=== PATIENT | female | born 1985 | race Caucasian/White ===

== ENCOUNTER 2023-12-01 11:52 | Day surgery (SDC) | payer OTHER ==
[2023-11-29 15:29] VITALS: BMI 45.6
[~2023-12-01 11:52] MED LIST: LIDOCAINE 1% (10MG/ML) FOR IV START INTRADERMA PRN
[2023-12-01 12:33] VITALS: TEMP 97.8
[2023-12-01] MEDS: LACTATED RINGERS 1,000 ML IV SCH (12:45)
[2023-12-01] MEDS ORDERED: PROPOFOL 10 MG/ML 20 ML VIAL IV ONE (12:52)
[2023-12-01] MEDS: LACTATED RINGERS 1,000 ML IV ONE ×2 (12:54→13:03)
--- NOTE | 2023-12-01 13:02 | P.PCN ---
Date of Procedure: 12/01/23 Procedure(s) Performed: BRIEF HISTORY: Patient is a 38-year-old, pleasant, white female scheduled of endoscopies about evaluation of chronic epigastric pain associate with intermittent nausea vomiting for the last 5 months duration. She was treated with Prilosec 20 mg daily for 1 month with no help. Takes Zofran as needed. PROCEDURE PERFORMED: Esophagogastroduodenoscopy with biopsy. PREOPERATIVE DIAGNOSIS: Chronic epigastric pain/intermittent nausea vomiting of 5 months duration. IV sedation per anesthesia. PROCEDURE: After informed consent was obtained, the patient was brought into the endoscopy unit. IV sedation was administered by Anesthesia under continuous monitoring. Initially the Olympus GIF-140 video endoscope was inserted into the mouth. Esophagus intubated without any difficulty. It was gradually advanced into the stomach and duodenum and carefully examined. The bulb and the second part of the duodenum appeared normal. Biopsies were done from the duodenum to evaluate for celiac disease. The scope at this time was withdrawn to the stomach, adequately insufflated with air, and upon careful examination, mucosa of the antrum, linear areas of erythema consistent with gastritis and biopsies were done from this area. Mucosa of the body, cardia and the fundus appeared normal. The scope was then withdrawn into the esophagus. The GE junction was located at 39 cm from the incisors. The esophagus appeared normal. There were no erosions or ulcerations seen, biopsies were done from the distal esophagus and the patient tolerated the procedure well. IMPRESSION: 1. Mild antral gastritis. 2. No evidence of esophagitis or peptic ulcer disease. RECOMMENDATIONS: The findings of this examination were discussed with the patient as well as her family. She was advised to follow-up with the biopsy results. Follow-up in the office in 3 to 4 weeks..
[2023-12-01 13:28] VITALS: BP 121/83; PULSE 69; RESP 18
== END 2023-12-01 13:30 | disposition home or self-care (01) ==
LOC: ORWHC2ENDO 11:52
PROVIDERS: ATTEND Internal Medicine Gastroenterology
DX: K29.50 Unspecified chronic gastritis without bleeding (principal); G89.29 Other chronic pain; E78.5 Hyperlipidemia, unspecified; J45.909 Unspecified asthma, uncomplicated; K76.0 Fatty (change of) liver, not elsewhere classified; F17.290 Nicotine dependence, other tobacco product, uncomplicated; Z79.899 Other long term (current) drug therapy; Z91.040 Latex allergy status; Z88.8 Allergy status to other drugs, medicaments and biological substances
CPT/HCPCS: 43239; 81025; 88305

== ENCOUNTER → 2024-02-22 | Outpatient (CLI) | payer OTHER ==
[2024-02-22 15:01] VITALS: BP 140/84; PULSE 90; RESP 16; TEMP 99.1
--- NOTE | 2024-02-22 15:39 | P.SLEEP ---
History of Present Illness H&P Date: 02/22/24 The pleasant 38-year-old female patient, known to me regarding her obstructive sleep apnea. The patient was diagnosed having CARMINE back in 2019 and she was diagnosed having mild CARMINE with an AHI of 7 and the patient was offered an APAP machine pressures of 5/15 cm of water. The patient was excessively fatigued and tired and sleepy at that time and the patient also had issues with her mental health including history of chronic anxiety depression and PTSD. Based on all this, she was started on CPAP therapy and the patient has been very compliant with her CPAP over the years. Nevertheless, she is coming to see me as the patient's symptoms of fatigue and hypersomnia are still active. She is also occasionally snoring while being on her CPAP machine as told by her who sleeps next to her. For now, the patient is going to bed at around 9:30 PM and she waking up 6 AM in the morning. On weekends, she wakes up 8 AM. He is averaging more than 7 hours of sleep. He remains excessively fatigued and sleepy during the day. She wakes up occasionally in the middle of the night to urinate. She has gained significant amount of weight over the years. Back in 2019, she used to a 247 pounds and her weight went up significantly after she stopped her psychiatric medications which included a combination of Zyprexa and Prozac and BuSpar. Her weight peaked at 297 pounds and currently she is losing weight and she is down to 273. I did a compliancy check on her machine and her machine is functional. She has been using her machine every night and her compliance is 30/30. She is using the machine 30 over 30 days and is averaging around 8.6 hours of CPAP use per night. 95th percentile pressures of 11.7 with a leak of 4 L/min the patient's AHI is down to 0.2. She is using a small size DreamWear full facemask. Her only medication is currently Lipitor 10 mg p.o. daily. Her functionality during the day is affected. 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 Her Loda score is 16/24. No sleep paralysis. No hallucinations. No cataplexy. Not of any motor vehicle accidents because of feeling drowsy or sleepy. She can easily fall asleep during the day because of her excessive fatigue and sleepiness. Review of Systems Constitutional: Reports daytime sleepiness, Reports fatigue, Reports weight gain Eyes: denies as per HPI, denies blurred vision, denies bulging eye, denies decreased vision, denies diplopia, denies discharge, denies dry eye, denies irritation, denies itching, denies pain, denies photophobia, denies loss of peripheral vision, denies loss of vision, denies tunnel vision/blind spots Ears: deny: decreased hearing, ear discharge, earache, tinnitus Ears, nose, mouth and throat: Reports as per HPI Breasts: absent: as per HPI, change in shape, gynecomastia, masses, nipple discharge, pain, skin changes, swelling Cardiovascular: Reports as per HPI Respiratory: Reports sleep apnea, Reports snoring Gastrointestinal: Reports as per HPI Genitourinary: Reports as per HPI Menstruation: Reports as per HPI Musculoskeletal: Reports as per HPI Musculoskeletal: absent: ankle pain, ankle stiffness, ankle swelling, as per HPI, elbow pain, elbow stiffness, elbow swelling, foot pain, foot stiffness, foot swelling, hand pain, hand stiffness, hand swelling, hip pain, hip stiffness, hip swelling, knee pain, knee stiffness, knee swelling, shoulder pain, shoulder stiffness, shoulder swelling, wrist pain, wrist stiffness, wrist swelling Integumentary: Reports as per HPI Neurological: Reports as per HPI Psychiatric: Reports hypersomnia, Reports sleep disturbances Endocrine: Reports fatigue Hematologic/Lymphatic: Reports as per HPI Allergic/Immunologic: Reports as per HPI Past Medical History Past Medical History: Hyperlipidemia, Sleep Apnea/CPAP/BIPAP Additional Past Medical History / Comment(s): PCOS, FATTY LIVER DISEASE, POSSIBLE KIDNEY ISSUES-STILL WORKING UP History of Any Multi-Drug Resistant Organisms: None Reported Past Surgical History: Cholecystectomy, Ear Surgery Additional Past Surgical History / Comment(s): LEFT OV. CYST REM., EAR TUBES X7, LUMP FROM NECK REMOVED, D&C X2 Past Anesthesia/Blood Transfusion Reactions: Postoperative Nausea & Vomiting (PONV) Past Psychological History: No Psychological Hx Reported Smoking Status: Former smoker, Vaper Past Alcohol Use History: Rare Past Drug Use History: None Reported - Past Family History Mother Family Medical History: Cancer Father Family Medical History: GERD/Reflux Additional Family Medical History / Comment(s): insomnia Sister(s) Additional Family Medical History / Comment(s): epilepsy Medications and Allergies Home Medications Medication Instructions Recorded Confirmed Type Atorvastatin [Lipitor] 20 mg PO DAILY 11/29/23 12/01/23 History Spironolactone 100 mg PO DAILY 11/29/23 12/01/23 History Allergies Allergy/AdvReac Type Severity Reaction Status Date / Time Latex, Natural Rubber Allergy Rash/Hives Verified 12/01/23 12:28 methocarbamol [From Robaxin] Allergy Rash/Hives Verified 12/01/23 12:28 Physical Exam Vitals: Vital Signs Temp Pulse Resp BP Pulse Ox 02/22/24 14:59 99.1 F 90 16 140/84 96 Obese, body mass index of 46.6. The patient appeared well nourished and normally developed. Vital signs as documented. Head exam is unremarkable. No scleral icterus or corneal arcus noted. Neck is without jugular venous distension, thyromegaly, or carotid bruits. Carotid upstrokes are brisk bilaterally. Mallampati class IV with significant crowding of the posterior pharynx. Lungs are clear to auscultation and percussion. Cardiac exam reveals the PMI to be normally sized and situated. Rhythm is regular. First and second heart sounds normal. No murmurs, rubs or gallops. Abdominal exam reveals normal bowel sounds, no masses, no organomegaly and no aortic enlargement. Extremities are nonedematous and both femoral and pedal pulses are normal. Examination of the skin revealed no evidence of significant rashes, suspicious appearing nevi or other concerning lesions. Neurologically, the patient is awake and alert and the patient does not have any focal neurological deficit. Cranial nerves are essentially intact. Assessment and Plan Plan: Obstructive sleep apnea, with ongoing complaints of excessive hypersomnia sleepiness with an Loda score of 16/24 despite adequate CPAP use. Her machine is functional and the patient remains on APAP mode pressures of 5/15 cm of water. Compliance check was done and the patient's treatment is successful and her AHI is down to one 0.2 while being on treatment. Nevertheless, she is occasionally snoring while on her CPAP machine. She remains excessively tired and sleepy. Chronic anxiety Chronic depression History of PTSD Morbid obesity with a BMI of 46.6, losing weight for now. Chronic nonalcoholic fatty liver disease Polycystic ovary syndrome Hyperlipidemia, maintained on Lipitor. Plan Based on her history of snoring, I recommended to switch this patient to a CPAP mode, continuous pressure of 13 cm of water. The choice of pressure was made at the patient's 95th percentile pressure on APAP mode was 11.7. Will keep the same mask interface. As for her ongoing hypersomnia and sleepiness, I think is reasonable to offer the patient stimulation therapy. I am going to start the patient on modafinil 200 mg p.o. daily. She is using an IUD as a mode of contraception. The patient is off her psychiatric medications Encourage weight loss Maintain good sleep hygiene measures Maintain regular sleep schedule Will do a short-term follow-up on this patient in 30 to 90 days to assess clinical response on the updated CPAP pressure and on modafinil. Will continue to follow and the patient will make an appointment with me in the pulmonary/critical care/sleep medicine office on [facility] - Sleep Data ESS Total: 16 - Sleep Note Sleep Note: Temperature: 99.1 F Pulse Rate: 90 Respiratory Rate: 16 Blood Pressure: 140/84 SpO2: 96 Height: Weight: BMI: Neck Circumference: 18
== END ==
LOC: 3 N SLEEP 13:27
PROVIDERS: ATTEND Internal Medicine Critical Care Medicine
DX: G47.33 Obstructive sleep apnea (adult) (pediatric) (principal); Z99.89 Dependence on other enabling machines and devices; F41.9 Anxiety disorder, unspecified; F32.A Depression, unspecified; E66.01 Morbid (severe) obesity due to excess calories; Z68.42 Body mass index [BMI] 45.0-49.9, adult; E78.5 Hyperlipidemia, unspecified; Z86.59 Personal history of other mental and behavioral disorders; K76.0 Fatty (change of) liver, not elsewhere classified; E28.2 Polycystic ovarian syndrome; Z87.891 Personal history of nicotine dependence; Z91.040 Latex allergy status; Z88.8 Allergy status to other drugs, medicaments and biological substances
CPT/HCPCS: 99211

== ENCOUNTER → 2024-06-14 | Outpatient (CLI) | payer OTHER ==
--- NOTE | 2024-06-14 13:43 | MR ---
INDICATION: Patient age:Female; 39 years old; Reason for study: M47.26 lumbar pain; PHH. COMPARISONS: Lumbar spine radiograph 06/01/2024. TECHNIQUE: Multi planar, multi sequence imaging was performed utilizing: T1-weighted, T2-weighted, a nd turbo inversion recovery imaging of the lumbar spine. The patient was not given contrast. FINDINGS: The lumbar vertebral bodies do have preserved heights and alignment. Several T2/T1 hyperin tense lesions within the thoracolumbar vertebral bodies most prominently involving the T12, L1, and L 3 vertebral bodies. These are most consistent with benign vertebral hemangiomas. No concerning STIR s ignal abnormality. Intervertebral disc signal is maintained. The conus medullaris and the distal spi nal cord do appear unremarkable with regards to their signal intensity and morphology. L1-L2: No significant disc pathology is identified. The spinal canal and neural foramen are patent. L2-L3: No significant disc pathology is identified. The spinal canal and neural foramen are patent. L3-L4: No significant disc pathology is identified. The spinal canal and neural foramen are patent. L4-L5: No significant disc pathology is identified. The spinal canal and neural foramen are patent. L5-S1: Minimal broad-based disc bulge. No significant central canal stenosis. No neural foraminal joselito nosis. Other significant findings: None. IMPRESSION: 1. No definitive evidence for disc herniation or significant spinal canal stenosis. 2. Minimal degenerative disc disease L5-S1. [facility], , 06/14/2024 1:41 PM
== END | disposition home or self-care (01) ==
LOC: RADMRIMAIN 12:49
PROVIDERS: ATTEND Orthopaedic Surgery
DX: M51.17 Intervertebral disc disorders with radiculopathy, lumbosacral region (principal); M47.26 Other spondylosis with radiculopathy, lumbar region
CPT/HCPCS: 72148

== ENCOUNTER → 2024-08-24 | Outpatient (CLI) | payer OTHER ==
[2024-08-24 12:36] VITALS: BP 150/87; PULSE 81; RESP 16; TEMP 97.1
--- NOTE | 2024-08-28 14:24 | P.PAINPG ---
Objective - Vital Signs Vital signs: Intake & Output 08/23/24 08/24/24 08/24/24 18:59 06:59 18:59 Weight 125.645 kg PQRS Measure Charge Sheet Comment: HISTORY OF PRESENT ILLNESS: A 39 yr old female as a referral from [facility] presents today w severe and chronic LBP > 3 mo secondary to radiculopathy, spondylosis and facet arthropathy without myelopathy for evaluation. Pt states pain level is provoked at 8 /10 in intensity, constant, localized in the lumbar spine, predominantly axial, burning in character w occasional shooting pain towards the BL knees. Pain is provoked by bending. Pain is alleviated by PT x 6 wks which ended in July 2024, chiropractic treatments semi monthly x 4 mo which ended in May 2024, physician guided home exercises 4-5 times weekly since July 2024, heat, medications, topical, use of TENS unit, repositioning and rest . Oswestry axial pain score at 20. PMH: OA, Hyperlipidemia, CARMINE, PCOS, Fatty Liver Disease PSH: EGD (2023), Cholecystectomy, L Ovarian Cystectomy, Ear Surgery x7, Cervical Lumpectomy, D&C x2 SH: Vaper, Rare ETOH use, No illicit drug use FH: Mo- CA. Fa- GERD. Sis- Epilepsy All: See list Medications include Tyl, Ibu REVIEW OF ORGAN SYSTEMS: CONSTITUTIONAL: No fevers or chills. No recent weight loss. NEUROLOGICAL: + numbness and tingling along the distal extremities. No seizure disorders or headaches. MUSCULOSKELETAL: + pain PSYCHIATRIC: Denies current depression or suicidal thoughts. Physical Examinations : Constitutional : Cooperative , not in acute distress . Neurologic : Cranial nerve II to XII intact. No focal neurological deficits. Psychiatric : alert & oriented x 3. Matching mood & appropriate affect. Judgment & insight intact. Musculoskeletal : Cervical Spine Motor strength in the deltoid and biceps: Normal right side. Normal Left side Motor strength biceps and the wrist extensors: Normal right side . Normal left side Motor strength in the triceps muscle: Normal right side. Normal left side Deep tendon reflexes: Normal at the biceps. Normal at Brachioradialis. Normal at triceps Vertebral body tenderness to deep palpation over Cervical facet loading test: positive bilaterally Spurling test: positive bilaterally Neck distraction test: positive bilaterally Rob sign: positive bilaterally Lumbar spine Motor strength lower extremities ,thigh and legs 5/5 Right side , 5/5 Left side Deep tendon reflexes : Normal Knee Jerk. Normal Ankle Jerk Vertebral body tenderness over L5 Marquez Test positive L5- S1 BL Lumbar facet Loading Test: positive Right / positive Left Range of motion of the lumbar spine Flexion 30 degrees, extension 10 degrees Straight Leg Raise test: Left/ Right positive at degrees Caprice test: positive right / positive left. Severe tenderness over the Sacroiliac joint on the Right / Left sides Gaenslen test: positive bilaterally Seated flexion test: positive bilaterally. Sacral spine : Severe tenderness over the Sacroiliac joint: right side / left side Range of motion: Flexion of the lumbar spine <60 degrees Range of motion: Extension of the lumbar spine <20 degrees Gaenslen's Test positive Caprice test: positive right side / left side Thigh Thrust Test Sacral Thrust Test Imaging: MRI non contrast lumbar spine from 06/14/24 reviewed Assessment/ Plan : L5-S1 spondylosis Recommendation of YAJAIRA L5-S1 #1. Risks, benefits of procedure discussed and patient verbalized understanding. Admits to anti- coagulant use or medical history of diabetes. Protocol for discontinuation/ continuation of medications mari procedure discussed. All questions answered. I have spent greater than 30 minutes on patient care today. Dr Treviño was available by phone for the evaluation of this patient. The time was used to review the medical records including relevant urine studies and Prescription history (MAPs), review of the available imaging, evaluation and examination of the patient, coordination of care with the medical staff and if applicable referring physicians, as well as creation of the medical record Home Medications: Ambulatory Orders Atorvastatin [Lipitor] 20 mg PO DAILY 11/29/23 Spironolactone 100 mg PO DAILY PRN 11/29/23 Gabapentin [Neurontin] 100 mg PO TID 08/24/24 metFORMIN HCL 500 mg PO DAILY 08/24/24 Controlled Substance Measures - Controlled Substance Measures Is patient prescribed a controlled substance at discharge?: No
== END ==
LOC: PNWHC3 08-10 10:57
PROVIDERS: ATTEND Specialist
DX: M47.26 Other spondylosis with radiculopathy, lumbar region (principal); Z88.8 Allergy status to other drugs, medicaments and biological substances; Z91.040 Latex allergy status; Z91.048 Other nonmedicinal substance allergy status
CPT/HCPCS: 99211

== ENCOUNTER 2024-09-07 06:36 | Day surgery (SDC) | payer OTHER ==
[2024-09-05 15:43] VITALS: BMI 48.2
[2024-09-07] MEDS ORDERED: LACTATED RINGERS 1,000 ML IV SCH (07:11)
[2024-09-07 07:33] VITALS: TEMP 98
[2024-09-07 07:39] LABS: Glucose,Whole Blood 100 mg/dL (70-110)
[2024-09-07] MEDS ORDERED: methylPREDNISolone ACETATE 80 MG/ML 1 ML VIAL ONE (07:56)
[2024-09-07] MEDS ORDERED: IOPAMIDOL M300 15ML VIAL ONE (07:56)
--- NOTE | 2024-09-07 08:20 | P.PCN ---
Description of Procedure: PREOPERATIVE DIAGNOSIS: 1- Lumbar Degenerative Disc Diseases 2-Lumbar spondylosis with Facet arthropathy without myelopathy. 3-lumbar spinal stenosis 4-Lumber radiculopathy POSTOPERATIVE DIAGNOSIS: 1-lumbar degenerative disc disease. 2-lumbar spondylosis with facet arthropathy without myelopathy. 3-lumbar spinal stenosis. 4-Lumber radiculopathy PROCEDURE Injection of radio contrast material into L5-S1 interspace, interpretation of epidurogram, injection of steroid at L5-S1 epidural space under fluoroscopic guidance. ANESTHESIA: Lidocaine 1% subcutaneously. In OR continuous pulse ox, EKG, blood pressure and verbal communication was maintained with the patient. EBL: Minimal PROCEDURE INDICATION: Before the procedure were discussed with the patient detailed procedure, alternatives, complications including infection, bleeding, nerve damage, paralysis all of which could be permanent. Patient understands and all questions were answered. PROCEDURE DESCRIPTION : After getting consent, patient in OR in prone position. Back was prepped with chlorhexidine and draped in sterile fashion. After injecting 10 mL of 1% lidocaine subcutaneously, a 20-gauge Tuohy needle was introduced at L5-S1 interspace with loss of resistance technique using a syringe filled with air. Negative CSF, negative blood, negative paresthesia. Needle position was confirmed with AP and lateral view of the fluoroscope. After repeat negative aspiration 2 mL of Omnipaque 200 water soluble contrast was injected. Contrast was noted in the epidural space. No contrast was noted into intrathecal or intravascular space. After repeat negative aspiration 6 mL solution was injected intermittently which consists of 5 mL of preservative-free normal saline mixed with 1 mL of 80 mg Depo-Medrol. Needle was withdrawn intact. Skin was cleansed and Band-Aids was applied. DISPOSITION / PLANS: The patient tolerated the procedure well. No complication. The patient was placed in a supine position and transferred to the recovery area in a stable condition for observation. There was no evidence of lower extremity motor or sensory deficit after the procedure. Patient was discharged from the recovery room after meeting discharge criteria. Home discharge instructions were given to the patient by the staff. The patient was reexamined prior to discharge. The patient will schedule a follow up in the clinic in 2-4 weeks.
--- NOTE | 2024-09-07 08:23 | FL ---
Fluoroscopy INDICATION: Pain FINDINGS: Fluoroscopy time: 19.6 seconds. Total dose area product (DAP) in uGy*m?, mGy*cm? (or similar): 0.50955 Images obtained: 2. Images document needle directed towards the lumbar spine IMPRESSION: 1. Documentation of fluoroscopy. [facility], , 09/07/2024 8:21 AM
[2024-09-07 08:36] VITALS: BP 108/72; PULSE 74; RESP 16
== END 2024-09-07 08:37 | disposition home or self-care (01) ==
LOC: ORPAIN 06:36
PROVIDERS: ATTEND Pain Medicine Interventional Pain Medicine
DX: M51.369 Other intervertebral disc degeneration, lumbar region without mention of lumbar back pain or lower extremity pain (principal); M48.061 Spinal stenosis, lumbar region without neurogenic claudication; M47.816 Spondylosis without myelopathy or radiculopathy, lumbar region
CPT/HCPCS: 81025; 62323; Q9967; J1010

== ENCOUNTER → 2024-10-09 | Outpatient (CLI) | payer OTHER ==
[2024-10-09 09:14] VITALS: BP 114/80; PULSE 64; RESP 16; TEMP 97.3
--- NOTE | 2024-10-09 16:41 | P.PAINPG ---
PQRS Measure Charge Sheet Comment: HISTORY OF PRESENT ILLNESS: A 39 yr old female presents today w severe and chronic LBP > 3 mo secondary to radiculopathy, spondylosis and facet arthropathy without myelopathy for evaluation s/p YAJAIRA L5-S1 #1. Pt states she experienced 100 % pain relief x 4 wks s/p procedure. Pt states pain level is provoked at 3 /10 in intensity, constant, localized in the lumbar spine, predominantly axial, burning in character w occasional shooting pain towards the BL knees. Pain is provoked by bending. Pain is alleviated by PT x 6 wks which ended in July 2024, chiropractic treatments semi monthly x 4 mo which ended in May 2024, physician guided home exercises 4-5 times weekly since July 2024, heat, medications, topical, use of TENS unit, repositioning and rest . Oswestry axial pain score at 20. Interventional procedures include YAJAIRA L5-S1 x1 (09/13) Medications include Neurontin, Tyl, Ibu REVIEW OF ORGAN SYSTEMS: CONSTITUTIONAL: No fevers or chills. No recent weight loss. NEUROLOGICAL: + numbness and tingling along the distal extremities. No seizure disorders or headaches. MUSCULOSKELETAL: + pain PSYCHIATRIC: Denies current depression or suicidal thoughts. Physical Examinations : Constitutional : Cooperative , not in acute distress . Neurologic : Cranial nerve II to XII intact. No focal neurological deficits. Psychiatric : alert & oriented x 3. Matching mood & appropriate affect. Judgment & insight intact. Musculoskeletal : Cervical Spine Motor strength in the deltoid and biceps: Normal right side. Normal Left side Motor strength biceps and the wrist extensors: Normal right side . Normal left side Motor strength in the triceps muscle: Normal right side. Normal left side Deep tendon reflexes: Normal at the biceps. Normal at Brachioradialis. Normal at triceps Vertebral body tenderness to deep palpation over Cervical facet loading test: positive bilaterally Spurling test: positive bilaterally Neck distraction test: positive bilaterally Rob sign: positive bilaterally Lumbar spine Motor strength lower extremities ,thigh and legs 5/5 Right side , 5/5 Left side Deep tendon reflexes : Normal Knee Jerk. Normal Ankle Jerk Vertebral body tenderness over L5 Marquez Test positive L5- S1 BL Lumbar facet Loading Test: positive Right / positive Left Range of motion of the lumbar spine Flexion 30 degrees, extension 10 degrees Straight Leg Raise test: Left/ Right positive at degrees Caprice test: positive right / positive left. Severe tenderness over the Sacroiliac joint on the Right / Left sides Gaenslen test: positive bilaterally Seated flexion test: positive bilaterally. Sacral spine : Severe tenderness over the Sacroiliac joint: right side / left side Range of motion: Flexion of the lumbar spine <60 degrees Range of motion: Extension of the lumbar spine <20 degrees Gaenslen's Test positive Caprice test: positive right side / left side Thigh Thrust Test Sacral Thrust Test Imaging: MRI non contrast lumbar spine from 06/14/24 reviewed Assessment/ Plan : L5-S1 spondylosis Will manage residual pain and may RTC on an as needed basis. All questions answered. I have spent greater than 30 minutes on patient care today. Dr Treviño was available by phone for the evaluation of this patient. The time was used to review the medical records including relevant urine studies and Prescription history (MAPs), review of the available imaging, evaluation and examination of the patient, coordination of care with the medical staff and if applicable referring physicians, as well as creation of the medical record - Pain Location Bilateral Lower Back Non-Pharmacological Interventions: Exercise, Inactivity, Physical Therapy, Position/Reposition, Sitting, Stretching, TENS Unit Pharmacological Interventions: Epidural, PRN Medication, Topical Medication PQRS Narrative: Hx Alcohol Use (MH) Yes: occasional Home Medications: Ambulatory Orders Atorvastatin [Lipitor] 20 mg PO DAILY 11/29/23 Spironolactone 100 mg PO DAILY PRN 11/29/23 Gabapentin [Neurontin] 100 mg PO TID 08/24/24 diazePAM [Valium] 10 mg PO DAILY 1 Days #1 tab 08/24/24 metFORMIN HCL 500 mg PO DAILY 08/24/24 Ibuprofen (Unknown Dose) 1 tab PO DIRECTED PRN 09/05/24 Controlled Substance Measures - Controlled Substance Measures Is patient prescribed a controlled substance at discharge?: No
== END ==
LOC: PNWHC3 08:42
PROVIDERS: ATTEND Specialist
DX: M47.26 Other spondylosis with radiculopathy, lumbar region (principal); Z91.048 Other nonmedicinal substance allergy status; Z88.8 Allergy status to other drugs, medicaments and biological substances
CPT/HCPCS: 99211